=== PATIENT | male | born 1950 | race Caucasian/White ===

== ENCOUNTER → 2016-04-07 | Outpatient (CLI) | payer MEDICARE ==
[2016-04-07 12:37] LABS: CH 30.1; CHCM 32.6; HCT 45.9 % (39.0-53.0); HDW 2.44; MCH 30.4 pg (25.0-35.0); MCHC 32.7 g/dL (31.0-37.0); MCV 92.9 fL (80.0-100.0); Mean Platelet Volume 7.7; RBC 4.94 m/uL (4.30-5.90); RDW 13.8 % (11.5-15.5); WBC 12.1 k/uL (3.8-10.6)
[2016-04-07 12:56] LABS: Anion Gap 10 mmol/L; Blood Urea Nitrogen 16 mg/dL (9-20); Carbon Dioxide 28 mmol/L (22-30); Chloride 104 mmol/L (98-107); Non-African American GFR(MDRD) >60 (>60 ml/min/1.73 sqM); Potassium 4.4 mmol/L (3.5-5.1); Sodium 142 mmol/L (137-145)
== END | disposition home or self-care (01) ==
LOC: LABPAT 12:05
PROVIDERS: ATTEND Internal Medicine Interventional Cardiology
DX: Z01.812 Encounter for preprocedural laboratory examination (principal); I25.10 Atherosclerotic heart disease of native coronary artery without angina pectoris
CPT/HCPCS: 80051; 82565; 84520; 85027

== ENCOUNTER 2016-04-15 08:45 | Day surgery (SDC) | payer MEDICARE ==
[2016-04-12 11:27] VITALS: BMI 44.2
[~2016-04-15 08:45] MED LIST: ALPRAZolam 0.25 MG TAB PO PRN; ALPRAZolam 0.5 MG TAB PO PRN; ASPIRIN 325 MG TAB PO STA; SODIUM CHLORIDE 0.9% 1,000 ML in EMPTY BAG 1 BAG IV ONE
[2016-04-15 09:12] LABS: Glucose,Whole Blood 124 mg/dL (75-99)
[2016-04-15 09:49] VITALS: RESP 20; TEMP 97.8
[2016-04-15] MEDS ORDERED: LIDOCAINE 2% INJ 20 MG/ML (20 ML MDV) ONE (10:15)
[2016-04-15] MEDS ORDERED: MIDAZOLAM 2 MG/2 ML VIAL ONE (10:15)
[2016-04-15] MEDS ORDERED: VERAPAMIL 2.5 MG/ML 2 ML AMP ONE (10:15)
[2016-04-15] MEDS ORDERED: SODIUM CHLORIDE 0.9% (PF) 10 ML VIAL ONE (10:15)
[2016-04-15] MEDS ORDERED: MIDAZOLAM 2 MG/2 ML VIAL IVP ONE (10:40)
[2016-04-15] MEDS ORDERED: SODIUM CHLORIDE 0.9% 1,000 ML IV ONE (10:44)
[2016-04-15] MEDS ORDERED: LIDOCAINE 2% INJ 20 MG/ML SQ ONE (10:51)
[2016-04-15] MEDS ORDERED: HEPARIN SODIUM 1,000 UNIT/ML VIAL ONE (10:52)
[2016-04-15] MEDS: VERAPAMIL SYRINGE (5 MG/10 ML) INTRAARTER ONE ×2 (10:52→11:03)
[2016-04-15] MEDS ORDERED: HEPARIN SODIUM 1,000 UNIT/ML VIAL IV ONE (10:53)
[2016-04-15] MEDS ORDERED: IOHEXOL 350 MG/ML 100 ML BOTTLE INJ ONE (11:04)
[2016-04-15] MEDS ORDERED: RX INFO: IV CONTRAST WAS GIVEN 1 EACH MISC MISCELLANE PRN (11:12)
[2016-04-15] MEDS ORDERED: SODIUM CHLORIDE 0.9% 1,000 ML IV SCH (11:15)
[2016-04-15 11:27] LABS: Glucose,Whole Blood 99 mg/dL (75-99)
[2016-04-15 15:22] VITALS: PULSE 80
[2016-04-15 16:17] VITALS: BP 115/70
--- NOTE | 2016-04-15 21:02 | CC ---
DATE OF SERVICE: 04/15/2016 PERFORMING PHYSICIAN: Maurilio Mansfield M.D., hot oiler. PROCEDURE PERFORMED: Selective right and left coronary angiogram. INDICATION: This is a pleasant 65-year-old gentleman who is known to have CAD with prior stenting of the proximal LAD and proximal left circumflex. He was experiencing chest discomfort consistent with angina. He underwent myocardial perfusion imaging stress test which showed what seems to be lateral wall ischemia. He was brought today to undergo a heart catheterization. APPROACH: Right radial artery. COMPLICATIONS: None. LEVEL OF SEDATION: Moderate. PROCEDURE DESCRIPTION: After obtaining informed consent, the patient was brought to the cardiac manager cardiac cath. The right radial artery was cannulated using micropuncture technique. The micropuncture wire passed easily, then I placed 6 Polish sheath in the right radial artery. I did give the patient 3000 units of heparin IV and ( ) mg of Verapamil IA. After that I did selective right and left coronary angiogram using JR4 and JL3.5 catheters. The procedure was completed without any complication. SELECTIVE CORONARY ANGIOGRAM: 1. The right coronary artery is a large-caliber vessel, a dominant vessel, and a calcified vessel. It has mild disease only. It bifurcates into PDA and PLV branches; both are angiographically normal. 2. The left main is angiographically normal. It bifurcates into the left circumflex and left anterior descending artery. 3. The left circumflex is a large-caliber vessel. It is a non-dominant vessel. The proximal left circumflex is stented with mild in-stent restenosis. The mid left circumflex is normal and gives rise to the first OM branch, which is a large-caliber vessel with mild disease only. The left circumflex continues after that as a small- to medium-caliber vessel in the AV groove. 4. Left anterior descending artery. The proximal LAD is stented, and the stent is patent. The mid LAD appeared to be angiographically normal and gives rise to 2 small diagonal branches. The LAD distally is angiographically normal. CONCLUSION: 1. Patent stents in the proximal left circumflex and proximal LAD. 2. There is no other severe de sammy coronary artery disease. POST-PROCEDURE MANAGEMENT: 1. Maximize medical treatment. 2. Follow up with the patient.
--- NOTE | 2016-04-15 21:05 | LTR ---
April 15, 2016 RE: Andrea Dalal Pardeep Dear Cecy, Mr. Andrea Dalal underwent a heart catheterization which showed patent stents in both the LAD and left circumflex. Thank you for allowing me to participate in his care. Please do not hesitate to call if you have any questions or concerns. Sincerely, VESTA VANG MD
== END 2016-04-15 16:05 | disposition home or self-care (01) ==
LOC: CATHCVL 08:45
PROVIDERS: ATTEND Internal Medicine Interventional Cardiology
DX: I25.110 Atherosclerotic heart disease of native coronary artery with unstable angina pectoris (principal); Z95.5 Presence of coronary angioplasty implant and graft; R94.39 Abnormal result of other cardiovascular function study; I10 Essential (primary) hypertension; E78.00 Pure hypercholesterolemia, unspecified; E78.5 Hyperlipidemia, unspecified; E11.9 Type 2 diabetes mellitus without complications; Z79.82 Long term (current) use of aspirin; Z79.4 Long term (current) use of insulin; Z79.891 Long term (current) use of opiate analgesic; Z79.899 Other long term (current) drug therapy; Z79.84 Long term (current) use of oral hypoglycemic drugs; Z82.49 Family history of ischemic heart disease and other diseases of the circulatory system; Z87.891 Personal history of nicotine dependence
CPT/HCPCS: 93454; 99156; 99157; C1894; J2001; J2250; Q9967; J1644

== ENCOUNTER 2017-03-04 18:47 | Emergency (ER) | payer MEDICARE ==
[2017-03-04 18:57] VITALS: RESP 18
[2017-03-04] MEDS ORDERED: SODIUM CHLORIDE 0.9% 500 ML IV STA (19:13)
[2017-03-04] MEDS ORDERED: methylPREDNISolone SOD SUCCI 125 MG/2 ML VIAL IV STA (19:13)
[2017-03-04] MEDS ORDERED: IPRATROPIUM-ALBUTEROL 3 ML NEB INHALATION STA (19:13)
--- NOTE | 2017-03-04 19:18 | ED ---
URI HPI - General Chief Complaint: Upper Respiratory Infection Stated Complaint: COUGHING Time Seen by Provider: 03/04/17 19:00 Source: patient, RN notes reviewed, old records reviewed Mode of arrival: ambulatory Limitations: no limitations - History of Present Illness Initial Comments: This is a 66-year-old male presents emergency department today she complaint of cough for 2 days. He has a history of cardiac stents. Patient reports that he is friend was diagnosed with bronchitis and he drank from the same drink started 2 days ago. Patient reports his cough has been nonproductive. He is a diabetic, and has hypertension. He denies any specific chest pain associated with this. He reports that he has some minor ear itching. Denies any other symptoms. - Related Data Home Medications Medication Instructions Recorded Confirmed Aspirin EC [Ecotrin Low Dose] 81 mg PO DAILY 04/12/16 03/04/17 Gabapentin 600 mg PO TID 04/12/16 03/04/17 HYDROcodone/APAP 7.5-325MG [[place] 1 tab PO TID PRN 04/12/16 03/04/17 7.5-325] INSULIN LISPRO (HumaLOG) [humaLOG] See Protocol SQ AC-TID PRN 04/12/16 03/04/17 Insulin Glargine,Hum.rec.anlog 70 units SQ DAILY 04/12/16 03/04/17 [[place] Solostar] Nitroglycerin Sl Tabs [Nitrostat] 0.4 mg SUBLINGUAL Q5M PRN 04/12/16 03/04/17 Tamsulosin HCl [Flomax] 0.8 mg PO HS 04/12/16 03/04/17 glipiZIDE [Glucotrol] 10 mg PO AC-BID 04/12/16 03/04/17 sitaGLIPtin [Januvia] 50 mg PO DAILY 04/12/16 03/04/17 Albuterol Nebulized [Ventolin 2.5 mg INHALATION RT-Q4H PRN 03/04/17 03/04/17 Nebulized] Bumetanide [BUMEX] 0.5 mg PO DAILY 03/04/17 03/04/17 Previous Rx's Medication Instructions Recorded Azithromycin [Zithromax Z-pack] 250 mg PO DIRECTED #6 tab 03/04/17 methylPREDNISolone Dose Pack 4 mg PO DIRECTED #21 package 03/04/17 [Medrol Dose Pack] Allergies Allergy/AdvReac Type Severity Reaction Status Date / Time No Known Allergies Allergy Verified 03/04/17 19:20 Review of Systems ROS Statement: Those systems with pertinent positive or pertinent negative responses have been documented in the HPI. ROS Other: All systems not noted in ROS Statement are negative. Past Medical History Past Medical History: Chest Pain / Angina, CVA/TIA, Diabetes Mellitus, Eye Disorder, Hearing Disorder / Deafness, Hyperlipidemia, Myocardial Infarction ([place] ), Osteoarthritis (OA), Renal Disease, Respiratory Disorder Additional Past Medical History / Comment(s): CP ON/OFF X3 WEEKS, OCC SHORT OF BREATH. STATES HAS CHRONIC "BRONCHITIS." [place]. NEUROPATHY IN FEET. Last Myocardial Infarction Date:: 2010 History of Any Multi-Drug Resistant Organisms: None Reported Past Surgical History: Heart Catheterization With Stent Additional Past Surgical History / Comment(s): PTCA W/ STENTS X2. ORIF RT THIGH. Past Anesthesia/Blood Transfusion Reactions: No Reported Reaction Date of Last Stent Placement:: 2010 Past Psychological History: No Psychological Hx Reported Smoking Status: Current every day smoker Past Alcohol Use History: None Reported Past Drug Use History: None Reported - Past Family History Daughter(s) Family Medical History: Cancer General Exam - General Exam Comments Initial Comments: Well appearing 66 year old male, no distress Limitations: no limitations General appearance: alert, in no apparent distress Head exam: Present: atraumatic, normocephalic, normal inspection Eye exam: Present: normal appearance, PERRL, EOMI. Absent: scleral icterus, conjunctival injection, periorbital swelling ENT exam: Present: normal exam, mucous membranes moist Neck exam: Present: normal inspection. Absent: tenderness, meningismus, lymphadenopathy Respiratory exam: Present: normal lung sounds bilaterally. Absent: respiratory distress, wheezes, rales, rhonchi, stridor Cardiovascular Exam: Present: regular rate, normal rhythm, normal heart sounds. Absent: systolic murmur, diastolic murmur, rubs, gallop, clicks GI/Abdominal exam: Present: soft, normal bowel sounds. Absent: distended, tenderness, guarding, rebound, rigid Extremities exam: Present: normal inspection, full ROM, normal capillary refill. Absent: tenderness, pedal edema, joint swelling, calf tenderness Back exam: Present: normal inspection Neurological exam: Present: alert, oriented X3, CN II-XII intact Course Vital Signs 03/04/17 03/04/17 03/04/17 18:55 20:08 20:22 Temperature 97.6 F Pulse Rate 93 92 90 Respiratory 18 Rate Blood Pressure 115/71 O2 Sat by Pulse 97 Oximetry 03/04/17 21:24 Temperature 97.4 F L Pulse Rate 90 Respiratory 18 Rate Blood Pressure 126/58 O2 Sat by Pulse 95 Oximetry Medical Decision Making - Medical Decision Making This is a 66-year-old male presents emergency department today she complaint of cough for 2 days. He has a history of cardiac stents. Patient reports that he is friend was diagnosed with bronchitis and he drank from the same drink started 2 days ago. Patient reports his cough has been nonproductive. Patient given duoneb breathing treatment. Has minimal wheezing. Patient influenza is negative. CXR is negative. Paitent will be diagnosed with bronchitis. Discussed starting Zpak and medrol dose pack. Discussed adjusting insulin sliding scale with steriod. Discussed return parameters and follow up with PCP. - Lab Data Result diagrams: 03/04/17 19:36 Lab Results 03/04/17 03/04/17 03/04/17 Range/Units 19:36 19:36 19:38 WBC 11.9 H (3.8-10.6) k/uL RBC 4.68 (4.30-5.90) m/uL Hgb 13.9 (13.0-17.5) gm/dL Hct 42.8 (39.0-53.0) % MCV 91.5 (80.0-100.0) fL MCH 29.7 (25.0-35.0) pg MCHC 32.5 (31.0-37.0) g/dL RDW 13.6 (11.5-15.5) % Plt Count 208 (150-450) k/uL Neutrophils % 68 % Lymphocytes % 21 % Monocytes % 7 % Eosinophils % 2 % Basophils % 1 % Neutrophils # 8.1 H (1.3-7.7) k/uL Lymphocytes # 2.5 (1.0-4.8) k/uL Monocytes # 0.9 (0-1.0) k/uL Eosinophils # 0.3 (0-0.7) k/uL Basophils # 0.1 (0-0.2) k/uL POC Glucose (mg/dL) 252 H (75-99) mg/dL POC Glu [employer] Machine Tender Rola Lopez Influenza Type A RNA Not Detected (Not Detectd) Influenza Type B (PCR) Not Detected (Not Detectd) - Radiology Data Radiology results: report reviewed CXR is negative for any acute process. Disposition Clinical Impression: Bronchitis Disposition: HOME SELF-CARE Condition: Good Instructions: Acute Bronchitis (ED) Additional Instructions: Patient should follow-up with primary care provider. Take medications as prescribed. Patient should discontinue smoking. Adjust your blood sugar correctly with insulin sliding scale. Prescriptions: Azithromycin [Zithromax Z-pack] 250 mg PO DIRECTED #6 tab methylPREDNISolone Dose Pack [Medrol Dose Pack] 4 mg PO DIRECTED #21 package Referrals: Cecy Peralta MD [Primary Care Provider] - 1-2 days Time of Disposition: 21:12
[2017-03-04 19:40] LABS: Glucose,Whole Blood 252 mg/dL (75-99)
[2017-03-04 19:46] LABS: Basophils # (A) 0.1 k/uL (0-0.2); Basophils % (A) 1 %; Eosinophils # (A) 0.3 k/uL (0-0.7); Eosinophils % (A) 2 %; HCT 42.8 % (39.0-53.0); HGB 13.9 gm/dL (13.0-17.5); Lymphocytes # (A) 2.5 k/uL (1.0-4.8); Lymphocytes % (A) 21 %; MCH 29.7 pg (25.0-35.0); MCHC 32.5 g/dL (31.0-37.0); MCV 91.5 fL (80.0-100.0); Mean Platelet Volume 6.9; Monocytes # (A) 0.9 k/uL (0-1.0); Monocytes % (A) 7 %; Neutrophils # (A) 8.1 k/uL (1.3-7.7); Neutrophils % (A) 68 %; Platelet Count 208 k/uL (150-450); RBC 4.68 m/uL (4.30-5.90); RDW 13.6 % (11.5-15.5); WBC 11.9 k/uL (3.8-10.6)
--- NOTE | 2017-03-04 20:15 | XR ---
EXAMINATION TYPE: XR chest 2V DATE OF EXAM: 03/04/2017 COMPARISON: November 21, 2011. HISTORY: Cough TECHNIQUE: Frontal and lateral views of the chest are obtained. FINDINGS: There is no focal air space opacity, pleural effusion, or pneumothorax seen. The cardiac silhouette size is within normal limits. The osseous structures are intact. IMPRESSION: No acute cardiopulmonary process.
[2017-03-04 20:22] VITALS: PULSE 90
[2017-03-04 21:25] VITALS: TEMP 97.4
[2017-03-04 21:26] VITALS: BP 126/58
--- NOTE | 2017-03-06 03:13 | CDI ---
Documentation Clarification OP Dear ANIBAL Barton: Please do addendum to ED report for Physical exam. Thank you, Najma Torrez Self Pay Specialist If you have any question, Please contact manager monitoring at [phone] [facility]
== END 2017-03-04 21:24 | disposition home or self-care (01) ==
LOC: EC 18:47
DX: J40 Bronchitis, not specified as acute or chronic (principal); E78.5 Hyperlipidemia, unspecified; I25.2 Old myocardial infarction; H91.90 Unspecified hearing loss, unspecified ear; E11.40 Type 2 diabetes mellitus with diabetic neuropathy, unspecified; F17.200 Nicotine dependence, unspecified, uncomplicated; Z79.4 Long term (current) use of insulin; Z79.82 Long term (current) use of aspirin; Z79.899 Other long term (current) drug therapy
CPT/HCPCS: 36415; 94640; 85025; 87502; 71020; 99284; 96374; 96361; J2930

== ENCOUNTER 2019-01-14 06:58 | Day surgery (SDC) | payer MEDICARE, BC ==
[2019-01-10 12:10] VITALS: BMI 42.9
[~2019-01-14 06:58] MED LIST changes: -ALPRAZolam 0.25 MG TAB PO PRN; -ALPRAZolam 0.5 MG TAB PO PRN; -ASPIRIN 325 MG TAB PO STA; +LACTATED RINGERS 1,000 ML IV SCH; -SODIUM CHLORIDE 0.9% 1,000 ML in EMPTY BAG 1 BAG IV ONE
[2019-01-14 07:18] VITALS: RESP 16; TEMP 97.7
[2019-01-14] MEDS ORDERED: LIDOCAINE 1% 20 ML VIAL (10MG/ML) FOR IV START INTRADERMA ONE (07:22)
[2019-01-14 07:26] LABS: Glucose,Whole Blood 147 mg/dL (75-99)
[2019-01-14] MEDS ORDERED: LIDOCAINE 1% INJ 10MG/ML (20 ML MDV) ONE (08:03)
[2019-01-14] MEDS ORDERED: PROPOFOL 10 MG/ML 20 ML VIAL IV ONE (08:03)
--- NOTE | 2019-01-14 08:36 | P.PCN ---
Date of Procedure: 01/14/19 Description of Procedure: BRIEF HISTORY: Patient is a 68-year-old pleasant male scheduled for an elective colonoscopy as a part of high risk screening for family history of colon cancer. Patient reports no history of colon cancer and his daughter diagnosed at the age of 45. Denies any change in bowel habits, blood per rectum or abdominal pain. Last colonoscopy 9 years ago normal per his recollection. PROCEDURE PERFORMED: Colonoscopy with polypectomy. PREOPERATIVE DIAGNOSIS: Family history of colon cancer (daughter diagnosed with colon cancer at age of 45), last colonoscopy 9 years ago. ESTIMATED BLOOD LOSS: Minimal. IV sedation per Anesthesia. PROCEDURE: After informed consent was obtained, the patient, was brought into the endoscopy unit. IV sedation was administered by Anesthesia under continuous monitoring. Digital rectal examination was normal. Initially the Olympus CF-190 flexible video colonoscope was then inserted in the rectum, gradually advanced into the cecum without any difficulty. Careful examination was performed as the scope was gradually being withdrawn. Ileocecal valve and the appendiceal orifice were visualized and appeared normal. Prep was good with some semisolid liquid and the koch of the mucosa which was able to be lavaged and suctioned. Mucosa of the cecum, ascending colon, transverse colon, descending colon, sigmoid colon, and rectum appeared normal. Diminutive sessile 2 mm transverse colon polyp removed with cold forcep polypectomy. Few scattered sigmoid diverticula noted. Retroflexion was performed in the rectum and no lesions were seen. The patient tolerated the procedure well. IMPRESSION: Mild sigmoid diverticulosis. Diminutive transverse colon polyp removed with cold forceps. RECOMMENDATIONS: Findings of this examination were discussed with the patient and his brother. Okay to resume diet and medications. Await pathology from polypectomy. Anticipate repeat colonoscopy in 3-5 years pending pathology from polypectomy and given patient's family history of colon cancer.
[2019-01-14 09:06] VITALS: BP 116/74; PULSE 79
== END 2019-01-14 09:15 | disposition home or self-care (01) ==
LOC: ORWHC2ENDO 06:58
PROVIDERS: ATTEND Internal Medicine
DX: Z12.11 Encounter for screening for malignant neoplasm of colon (principal); K63.5 Polyp of colon; K57.30 Diverticulosis of large intestine without perforation or abscess without bleeding; Z80.0 Family history of malignant neoplasm of digestive organs; I25.10 Atherosclerotic heart disease of native coronary artery without angina pectoris; J45.909 Unspecified asthma, uncomplicated; M19.90 Unspecified osteoarthritis, unspecified site; E78.5 Hyperlipidemia, unspecified; N28.9 Disorder of kidney and ureter, unspecified; E11.319 Type 2 diabetes mellitus with unspecified diabetic retinopathy without macular edema; F17.210 Nicotine dependence, cigarettes, uncomplicated; I25.2 Old myocardial infarction; Z86.73 Personal history of transient ischemic attack (TIA), and cerebral infarction without residual deficits; Z95.5 Presence of coronary angioplasty implant and graft; Z79.82 Long term (current) use of aspirin; Z79.4 Long term (current) use of insulin; Z79.891 Long term (current) use of opiate analgesic; Z79.899 Other long term (current) drug therapy
CPT/HCPCS: 88305; 45380; J2001; J2704

== ENCOUNTER 2019-06-08 13:38 | Emergency (ER) | payer MEDICARE, BC ==
[2019-06-08 13:50] VITALS: RESP 16
[2019-06-08] MEDS ORDERED: MORPHINE SULFATE 4 MG/ML SYRINGE IVP STA (13:57)
[2019-06-08] MEDS ORDERED: ONDANSETRON 4 MG/2 ML VIAL IVP STA (13:57)
--- NOTE | 2019-06-08 14:01 | ED ---
Skin/Abscess/FB HPI - General Source: patient, RN notes reviewed Mode of arrival: ambulatory Limitations: no limitations <Juan Hamilton - Last Filed: 06/08/19 14:00> <Ian Melgar - Last Filed: 06/08/19 16:21> - General Chief complaint: Skin/Abscess/Foreign Body Stated complaint: Urogenital Time Seen by Provider: 06/08/19 13:52 - History of Present Illness Initial comments: This a 68-year-old male presents emergency Department chief complaint of scrotal lump. Patient states started a few days ago. Patient states it is becoming more painful. He states he feels that they behind his scrotum. He denies any fevers or chills he states he is a diabetic was blood sugars have been running well. Current blood sugar 166. Patient denies any abdominal pain, generalized weakness, nausea, vomiting no dysuria no hematuria. He's never had an abscess that does not pass. (uJan Hamilton) - Related Data Home Medications Medication Instructions Recorded Confirmed Aspirin EC [Ecotrin Low Dose] 81 mg PO HS 04/12/16 01/10/19 Gabapentin 1,200 mg PO BID 04/12/16 01/10/19 HYDROcodone/APAP 7.5-325MG [[place] 1 tab PO Q6H PRN 04/12/16 01/10/19 7.5-325] Nitroglycerin Sl Tabs [Nitrostat] 0.4 mg SUBLINGUAL Q5M PRN 04/12/16 01/10/19 Tamsulosin HCl [Flomax] 0.4 mg PO HS 04/12/16 01/10/19 glipiZIDE [Glucotrol] 10 mg PO AC-BID 04/12/16 01/10/19 sitaGLIPtin [Januvia] 100 mg PO DAILY 04/12/16 01/10/19 Albuterol Nebulized [Ventolin 2.5 mg INHALATION RT-Q4H PRN 03/04/17 01/14/19 Nebulized] Atorvastatin [Lipitor] 20 mg PO DAILY 01/10/19 01/10/19 Empagliflozin [Jardiance] 25 mg PO DAILY 01/10/19 01/10/19 Hydrocortisone Butyrate 1 applic TOPICAL BID PRN 01/10/19 01/10/19 [Hydrocortisone Butyrate 0.1%] Insulin Aspart [NovoLOG Flexpen] 30 - 40 units SQ AC-TID PRN 01/10/19 01/10/19 Insulin Degludec [Tresiba 60 units SQ HS 01/10/19 01/10/19 Flextouch U-200] metFORMIN HCL [Glucophage] 500 mg PO DAILY 01/10/19 01/10/19 Previous Rx's Medication Instructions Recorded Clindamycin [Cleocin] 450 mg PO Q8H 10 Days #30 cap 06/08/19 Allergies Allergy/AdvReac Type Severity Reaction Status Date / Time No Known Allergies Allergy Verified 06/08/19 13:50 Review of Systems ROS Other: All systems not noted in ROS Statement are negative. <Juan Hamilton - Last Filed: 06/08/19 14:00> ROS Other: All systems not noted in ROS Statement are negative. <Ian Melgar - Last Filed: 06/08/19 16:21> ROS Statement: Those systems with pertinent positive or pertinent negative responses have been documented in the HPI. Past Medical History Past Medical History: Asthma, Coronary Artery Disease (CAD), Chest Pain / Angina, CVA/TIA, Diabetes Mellitus, Eye Disorder, Hyperlipidemia, Myocardial Infarction ([place]), Osteoarthritis (OA), Renal Disease, Respiratory Disorder Additional Past Medical History / Comment(s): Hx "MINI STROKE," recovered. Diabetic retinopathy. STATES HAS CHRONIC "BRONCHITIS." SL [place]. B[place]. NEUROPATHY IN FEET. 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 Last Myocardial Infarction Date:: 2010 History of Any Multi-Drug Resistant Organisms: None Reported Past Surgical History: Heart Catheterization With Stent Additional Past Surgical History / Comment(s): PTCA W/ STENTS X2. ORIF RT THIGH as child. Colonoscopy. Past Anesthesia/Blood Transfusion Reactions: No Reported Reaction Date of Last Stent Placement:: 2010 Past Psychological History: No Psychological Hx Reported Smoking Status: Current every day smoker - Past Family History Daughter(s) Family Medical History: Cancer <Juan Hamilton - Last Filed: 06/08/19 14:00> General Exam Limitations: no limitations General appearance: alert, in no apparent distress Head exam: Present: atraumatic, normocephalic, normal inspection Eye exam: Present: normal appearance, PERRL, EOMI. Absent: scleral icterus, conjunctival injection, periorbital swelling Respiratory exam: Present: normal lung sounds bilaterally. Absent: respiratory distress, wheezes, rales, rhonchi, stridor Cardiovascular Exam: Present: regular rate, normal rhythm, normal heart sounds. Absent: systolic murmur, diastolic murmur, rubs, gallop, clicks GI/Abdominal exam: Present: soft, normal bowel sounds. Absent: distended, tenderness, guarding, rebound, rigid exam: Present: scrotal swelling (Mild), other (There is approximately 2 cm firm and mildly fluctuant lump at the base of scrotum towards the perineum) Neurological exam: Present: alert, oriented X3 <Juan Hamilton - Last Filed: 06/08/19 14:00> Course Vital Signs 06/08/19 13:49 Temperature 98.1 F Pulse Rate 91 Respiratory 16 Rate Blood Pressure 102/66 O2 Sat by Pulse 96 Oximetry Procedures - Incision & Drainage Consent Obtained: verbal consent Site: scrotum Size (cm): 3 Anesthetic Used: lidocaine 1% Amount (mLs): 2 I&D Cleaning Method: Chloroprep, Betadine Sterile Field Used?: Yes Scalpel Used: #11 Needle Aspiration Performed?: No Irrigation Performed?: No I&D Drainage Obtained: Pus, Blood Packing: Iodoform Culture Obtained?: Yes Patient Tolerated Procedure: well <Ian Melgar - Last Filed: 06/08/19 16:21> Medical Decision Making - Lab Data Result diagrams: 06/08/19 14:09 06/08/19 14:09 - Radiology Data Radiology results: report reviewed (Scrotal ultrasound: Complex fluid collection at area of pain with peripheral vascularity suspicious for focal soft tissue abscess.) <Ian Melgar - Last Filed: 06/08/19 16:21> - Medical Decision Making Patient was endorsed to me by NATALIE Hamilton secondary to end of his shift. Please see ED ANIBAL Hamilton's note for a detailed H&P. Patient is afebrile and without leukocytosis. Patient is noted to have a posterior scrotal abscess by examination and by ultrasound findings. Patient has no findings of cellulitis at this time. Patient's abscess was incised and drained myself using a a size 11 scalpel. Cultures were obtained. Patient tolerated the procedure well. Given that the patient is diabetic, and given the location of the patient's ab scess, will start the patient on a course of oral clindamycin. Patient was instructed to, and agrees to, follow up with his primary care provider or return to the ED in 2-3 days' time for wound reevaluation and packing/dressing change. Patient was counseled about scrotal abscesses, and he was clearly explained return and follow-up instructions. He was instructed to return to the ED sooner should he develop new or worsening pain or swelling, a fever, vomiting, shortness of breath, feeling dizzy or faint, or new or worsening symptoms. He feels comfortable with this plan. (Ian Melgar) - Lab Data Lab Results 06/08/19 06/08/19 06/08/19 Range/Units 14:09 14:09 14:09 WBC 10.7 H (3.8-10.6) k/uL RBC 5.22 (4.30-5.90) m/uL Hgb 15.8 (13.0-17.5) gm/dL Hct 49.0 (39.0-53.0) % MCV 93.9 (80.0-100.0) fL MCH 30.2 (25.0-35.0) pg MCHC 32.2 (31.0-37.0) g/dL RDW 14.2 (11.5-15.5) % Plt Count 228 (150-450) k/uL Neutrophils % 64 % Lymphocytes % 25 % Monocytes % 6 % Eosinophils % 2 % Basophils % 0 % Neutrophils # 6.8 (1.3-7.7) k/uL Lymphocytes # 2.7 (1.0-4.8) k/uL Monocytes # 0.7 (0-1.0) k/uL Eosinophils # 0.3 (0-0.7) k/uL Basophils # 0.0 (0-0.2) k/uL Sodium 137 (137-145) mmol/L Potassium 4.6 (3.5-5.1) mmol/L Chloride 105 (98-107) mmol/L Carbon Dioxide 24 (22-30) mmol/L Anion Gap 8 mmol/L BUN 20 (9-20) mg/dL Creatinine 0.86 (0.66-1.25) mg/dL Est GFR (CKD-EPI)AfAm >90 (>60 ml/min/1.73 sqM) Est GFR (CKD-EPI)NonAf >90 (>60 ml/min/1.73 sqM) Glucose 176 H (74-99) mg/dL Plasma Lactic Acid [place] 2.0 (0.7-2.0) mmol/L Calcium 9.1 (8.4-10.2) mg/dL Disposition <Juan Hamilton - Last Filed: 06/08/19 14:00> Is patient prescribed a controlled substance at d/c from ED?: No Time of Disposition: 16:21 <Ian Melgar - Last Filed: 06/08/19 16:21> Clinical Impression: Scrotal abscess Disposition: HOME SELF-CARE Condition: Stable Instructions (If sedation given, give patient instructions): Abscess Incision and Drainage (ED) Additional Instructions: Return to the ER immediately should you develop new or worsening pain or swelling, a fever, vomiting, shortness of breath, feeling dizzy or faint, or new or worsening symptoms. Follow up with your primary care provider or return to the ER in 2-3 days for wound reevaluation. Prescriptions: Clindamycin [Cleocin] 450 mg PO Q8H 10 Days #30 cap Referrals: Lee Ann Alonso MD [Primary Care Provider] - 1-2 days
[2019-06-08 14:21] LABS: Basophils % (A) 0 %; Eosinophils # (A) 0.3 k/uL (0-0.7); Eosinophils % (A) 2 %; HGB 15.8 gm/dL (13.0-17.5); Lymphocytes # (A) 2.7 k/uL (1.0-4.8); Lymphocytes % (A) 25 %; MCH 30.2 pg (25.0-35.0); MCHC 32.2 g/dL (31.0-37.0); MCV 93.9 fL (80.0-100.0); Mean Platelet Volume 7.5; Monocytes # (A) 0.7 k/uL (0-1.0); Monocytes % (A) 6 %; Neutrophils # (A) 6.8 k/uL (1.3-7.7); Neutrophils % (A) 64 %; Platelet Count 228 k/uL (150-450); RBC 5.22 m/uL (4.30-5.90); RDW 14.2 % (11.5-15.5); WBC 10.7 k/uL (3.8-10.6)
[2019-06-08 14:29] LABS: African American GFR (CKD) >90 (>60 ml/min/1.73 sqM); Anion Gap 8 mmol/L; Blood Urea Nitrogen 20 mg/dL (9-20); Calcium 9.1 mg/dL (8.4-10.2); Carbon Dioxide 24 mmol/L (22-30); Chloride 105 mmol/L (98-107); Glucose 176 mg/dL (74-99); Non-African American GFR(CKD) >90 (>60 ml/min/1.73 sqM); Potassium 4.6 mmol/L (3.5-5.1); Sodium 137 mmol/L (137-145)
--- NOTE | 2019-06-08 15:31 | US ---
EXAMINATION TYPE: US scrotum with doppler. Grayscale and color Doppler Duplex imaging performed of t he scrotum. DATE OF EXAM: 06/08/2019 COMPARISON: NONE CLINICAL HISTORY: Pain. EXAM MEASUREMENTS: TESTICLES: Right Testicle: 4.3 x 2.2 x 3.1 cm Left Testicle: 4.4 x 2.3 x 2.4 cm EPIDIDYMIS HEAD: Right Epididymis: 0.9 cm Left Epididymis: 1.0 cm Doppler performed to assess for testicular vascularity; good bilateral color flow and waveforms are s een. Presence of hydroceles: no Presence of varicoceles: no Comparison images show symmetric blood flow to both testicles towards middle ear study. Inferior to testicles at patients area of pain is a well circumscribed hypoechoic area with surroundi ng increased vascularity measuring 3.2 x 1.5 x 1.9cm. IMPRESSION: Complex fluid collection at area of pain with peripheral vascularity suspicious for focal soft tissue abscess. Technologist labels this inferior to scrotum but should be correlated clinicall y as not sure what this means inferior to the scrotum?
[2019-06-08] MEDS ORDERED: CLINDAMYCIN 150 MG CAP PO STA (16:11)
[2019-06-08 16:28] VITALS: BP 125/85; PULSE 75; TEMP 98.2
== END 2019-06-08 16:28 | disposition home or self-care (01) ==
LOC: EC 13:38
DX: N49.2 Inflammatory disorders of scrotum (principal); F17.200 Nicotine dependence, unspecified, uncomplicated; I25.119 Atherosclerotic heart disease of native coronary artery with unspecified angina pectoris; E78.5 Hyperlipidemia, unspecified; E11.42 Type 2 diabetes mellitus with diabetic polyneuropathy; N40.0 Benign prostatic hyperplasia without lower urinary tract symptoms; E11.319 Type 2 diabetes mellitus with unspecified diabetic retinopathy without macular edema; M19.90 Unspecified osteoarthritis, unspecified site; I25.2 Old myocardial infarction; Z79.899 Other long term (current) drug therapy; Z79.4 Long term (current) use of insulin; Z79.82 Long term (current) use of aspirin; Z79.891 Long term (current) use of opiate analgesic; Z86.73 Personal history of transient ischemic attack (TIA), and cerebral infarction without residual deficits; Z95.5 Presence of coronary angioplasty implant and graft
CPT/HCPCS: 36415; 80048; 83605; 85025; 87070; 87205; 93975; 76870; 99284; 96374; 96375; 54700; J2270; J2405

== ENCOUNTER 2019-12-13 14:10 | Emergency (ER) | payer MEDICARE, BC ==
[2019-12-13 14:33] VITALS: BP 123/76; PULSE 96; RESP 18; TEMP 98
[2019-12-13] MEDS ORDERED: HYDROcodone/APAP 7.5-325MG 1 EACH TAB PO ONE (15:02)
--- NOTE | 2019-12-13 15:28 | XR ---
Right femur HISTORY: Pain Frontal and lateral views the right femur submitted on 5 images Correlation to prior exam 12/07/2015 There is no significant interval change. No evident lytic or blastic lesion. Focal cortical thickenin g shows a stable nonaggressive appearance in the midshaft medially in the right femur. Atheroscleroti c calcifications are present. No acute fracture or dislocation. IMPRESSION: Stable findings, remote trauma, if infection is suspected clinically, alternate imaging m ay be of benefit.
--- NOTE | 2019-12-13 15:44 | ED ---
General Adult HPI - General Chief complaint: Skin/Abscess/Foreign Body Stated complaint: Poss Boil on R Leg Time Seen by Provider: 12/13/19 14:36 Source: patient, RN notes reviewed, old records reviewed Mode of arrival: ambulatory Limitations: no limitations - History of Present Illness Initial comments: 69-year-old male patient presents to ED for evaluation of right posterior thigh pain. Reports has been ongoing for the last 2 days. Denies any recent falls or trauma. denies any chest pain or abdominal pain shortness of breath. Denies any other acute complaints at this time. Systemic: Pt denies fatigue, fever/chills, rash. Pt denies weakness, night sweats, weight loss. Neuro: Pt denies headache, visual disturbances, syncope or pre-syncope. HEENT: Pt denies ocular discharge or irritation, otalgia, rhinorrhea, pharyngitis or notable lymphadenopathy. Cardiopulmonary: Pt denies chest pain, SOB, heart palpitations, dyspnea on exer tion. Abdominal/GI: Pt denies abdominal pain, n/v/d. : Pt denies dysuria, burning w/ urination, frequency/urgency. Denies new onset urinary or bowel incontinence. MSK: Pt denies loss of strength or function in extremities. Neuro: Pt denies new onset weakness, paresthesias. - Related Data Home Medications Medication Instructions Recorded Confirmed Aspirin EC [Ecotrin Low Dose] 81 mg PO HS 04/12/16 01/10/19 Gabapentin 1,200 mg PO BID 04/12/16 01/10/19 HYDROcodone/APAP 7.5-325MG [[place] 1 tab PO Q6H PRN 04/12/16 01/10/19 7.5-325] Nitroglycerin Sl Tabs [Nitrostat] 0.4 mg SUBLINGUAL Q5M PRN 04/12/16 01/10/19 Tamsulosin HCl [Flomax] 0.4 mg PO HS 04/12/16 01/10/19 glipiZIDE [Glucotrol] 10 mg PO AC-BID 04/12/16 01/10/19 sitaGLIPtin [Januvia] 100 mg PO DAILY 04/12/16 01/10/19 Albuterol Nebulized [Ventolin 2.5 mg INHALATION RT-Q4H PRN 03/04/17 01/14/19 Nebulized] Atorvastatin [Lipitor] 20 mg PO DAILY 01/10/19 01/10/19 Empagliflozin [Jardiance] 25 mg PO DAILY 01/10/19 01/10/19 Hydrocortisone Butyrate 1 applic TOPICAL BID PRN 01/10/19 01/10/19 [Hydrocortisone Butyrate 0.1%] Insulin Aspart [NovoLOG Flexpen] 30 - 40 units SQ AC-TID PRN 01/10/19 01/10/19 Insulin Degludec [Tresiba 60 units SQ HS 01/10/19 01/10/19 Flextouch U-200] metFORMIN HCL [Glucophage] 500 mg PO DAILY 01/10/19 01/10/19 Previous Rx's Medication Instructions Recorded Clindamycin [Cleocin] 450 mg PO Q8H 10 Days #30 cap 06/08/19 Sulfamethox-Tmp 800-160Mg [Bactrim 1 tab PO Q12HR 10 Days #20 tab 12/13/19 DS 800-160 mg] Allergies Allergy/AdvReac Type Severity Reaction Status Date / Time No Known Allergies Allergy Verified 12/13/19 14:28 Review of Systems ROS Statement: Those systems with pertinent positive or pertinent negative responses have been documented in the HPI. ROS Other: All systems not noted in ROS Statement are negative. Past Medical History Past Medical History: Asthma, Coronary Artery Disease (CAD), Chest Pain / Angin a, CVA/TIA, Diabetes Mellitus, Eye Disorder, Hyperlipidemia, Myocardial Infarction ([place]), Osteoarthritis (OA), Renal Disease, Respiratory Disorder Additional Past Medical History / Comment(s): Hx "MINI STROKE," recovered. Diabetic retinopathy. STATES HAS CHRONIC "BRONCHITIS." SL [place]. BPH. NEUROPATHY IN FEET. 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 Last Myocardial Infarction Date:: 2010 History of Any Multi-Drug Resistant Organisms: None Reported Past Surgical History: Heart Catheterization With Stent Additional Past Surgical History / Comment(s): PTCA W/ STENTS X2. ORIF RT THIGH as child. Colonoscopy. Past Anesthesia/Blood Transfusion Reactions: No Reported Reaction Date of Last Stent Placement:: 2010 Past Psychological History: No Psychological Hx Reported Smoking Status: Current every day smoker Past Alcohol Use History: None Reported Past Drug Use History: None Reported - Past Family History Daughter(s) Family Medical History: Cancer General Exam - General Exam Comments Initial Comments: Constitutional: NAD, AOX3, Pt has pleasant affect. HEENT: NC/AT, trachea midline, neck supple, no lymphadenopathy. Posterior pharynx non erythematous, without exudates. External ears appear normal, without discharge. Mucous membranes moist. Eyes PERRLA, EOM intact. There is no scleral icterus. No pallor noted. Cardiopulmonary: RRR, no murmurs, rubs or gallops, no JVD noted. Lungs CTAB in anterior and posterior fuller. No peripheral edema. Abdominal exam: Abdomen soft and non-distended. Abdomen non-tender to palpation in all 4 quadrants. Bowel sounds active in LLQ. No hepatosplenomegaly. No ecchymosis Neuro: CN II-XII grossly intact. No nuchal rigidity. No raccon eyes, no harris sign, no hemotympanum. No cervical spinal tenderness. MSK: No posterior calf tenderness bilaterally, homans sign negative bilaterally. Posterior tibialis and radial pulse +2 bilaterally. Sensation intact in upper and lower extremities. Full active ROM in upper and lower extremities. Right posterior mid thigh is mildly tender to palpation. 2 x 2 centimeter abscess is noted on the proximal posterior femur region. Was drained with the 18-gauge needle displayed purulent drainage. Limitations: no limitations Course Vital Signs 12/13/19 14:30 Temperature 98.0 F Pulse Rate 96 Respiratory 18 Rate Blood Pressure 123/76 O2 Sat by Pulse 94 L Oximetry Procedures - Incision & Drainage Consent Obtained: verbal consent Indication: abscess Site: lower extremity Size (cm): 2 I&D Cleaning Method: Chloroprep, Alcohol Wipe Needle Aspiration Performed?: Yes I&D Drainage Obtained: Pus Culture Obtained?: Yes Patient Tolerated Procedure: well, no complications Medical Decision Making - Medical Decision Making 69-year-old male patient was ED with chief complaint of right posterior thigh pain. Patient vital signs are stable, afebrile. Physical exam Mr. displayed some mild posterior thigh tenderness. Obtained including x-ray as well as in BOTH WHICH ARE NEGATIVE FOR ACUTE PROCESS. ON REPEAT EVALUATION AN ABSCESS ABOUT 2 X 2 CENTIMETERS WAS IDENTIFIED AND DRAINED. PATIENT DISCHARGED WITH OUTPATIENT FOLLOW-UP ANTIBIOTICS AND RETURN PRECAUTIONS. CASE DISCUSSED WITH Dr. Crowe. Disposition Clinical Impression: Abscess Disposition: HOME SELF-CARE Condition: Stable Instructions (If sedation given, give patient instructions): Abscess (ED) Additional Instructions: Take antibiotics as directed. Follow up with PCP tomorrow. Return to ED with any worsening symptoms. Prescriptions: Sulfamethox-Tmp 800-160Mg [Bactrim DS 800-160 mg] 1 tab PO Q12HR 10 Days #20 tab Is patient prescribed a controlled substance at d/c from ED?: No Referrals: Lee Ann Alonso MD [Primary Care Provider] - 1-2 days
--- NOTE | 2019-12-13 16:00 | US ---
EXAMINATION TYPE: US venous doppler duplex LE RT DATE OF EXAM: 12/13/2019 3:51 PM COMPARISON: NONE CLINICAL HISTORY: pain . SIDE PERFORMED: Right TECHNIQUE: The lower extremity deep venous system is examined utilizing real time linear array sonog demetrio with graded compression, doppler sonography and color-flow sonography. VESSELS IMAGED: External Iliac Vein (EIV) Common Femoral Vein Deep Femoral Vein Greater Saphenous Vein * Femoral Vein Popliteal Vein Small Saphenous Vein * Proximal Calf Veins (* superficial vessels) Right Leg: Negative for DVT Grayscale, color doppler, spectral doppler imaging performed of the deep veins of the right lower ext remity. There is normal flow, compressibility, vascular waveforms. IMPRESSION: No ultrasound evidence for acute DVT in the right lower extremity.
[2019-12-13] MEDS ORDERED: SULFAMETH-TMP DS STARTER PACK 2 TAB BTL PO STA (16:32)
[2019-12-13] MEDS ORDERED: SULFAMETHOX-TMP 800-160MG 1 EACH TAB PO STA (16:32)
== END 2019-12-13 17:18 | disposition home or self-care (01) ==
LOC: EC 14:10
DX: L02.415 Cutaneous abscess of right lower limb (principal); I25.119 Atherosclerotic heart disease of native coronary artery with unspecified angina pectoris; E11.21 Type 2 diabetes mellitus with diabetic nephropathy; E11.319 Type 2 diabetes mellitus with unspecified diabetic retinopathy without macular edema; J45.909 Unspecified asthma, uncomplicated; N40.0 Benign prostatic hyperplasia without lower urinary tract symptoms; M19.90 Unspecified osteoarthritis, unspecified site; E78.5 Hyperlipidemia, unspecified; I25.2 Old myocardial infarction; F17.200 Nicotine dependence, unspecified, uncomplicated; Z79.84 Long term (current) use of oral hypoglycemic drugs; Z79.82 Long term (current) use of aspirin; Z79.899 Other long term (current) drug therapy; Z79.4 Long term (current) use of insulin; Z96.698 Presence of other orthopedic joint implants; Z86.73 Personal history of transient ischemic attack (TIA), and cerebral infarction without residual deficits
CPT/HCPCS: 10060; 87070; 87205; 99284

== ENCOUNTER 2019-12-17 10:15 | Emergency (ER) | payer MEDICARE, BC ==
[2019-12-17 10:21] VITALS: RESP 18; TEMP 96.8
--- NOTE | 2019-12-17 10:36 | ED ---
Skin/Abscess/FB HPI - General Chief complaint: Skin/Abscess/Foreign Body Stated complaint: Boil on leg Time Seen by Provider: 12/17/19 10:22 Source: patient Mode of arrival: ambulatory Limitations: no limitations - History of Present Illness Initial comments: Patient is a 69-year-old male with history of diabetes presenting to the emergency department chief complaint of boil on the leg. Patient states he was in the emergency department 4 days ago and had a needle aspiration and lesion which is located on the posterior aspect of the proximal right thigh. Patient states the lesion continues to be more uncomfortable but he does not believe it is getting bigger in size. States it is in an upper position and is hard to see. Patient states he had a similar incident with an abscess in the same region as well. States outpatient about extubated for work for forearm. He denies any night sweats or chills. Denies any nausea or vomiting. States the pain is exacerbated with palpation whenever he sitting or standing. - Related Data Home Medications Medication Instructions Recorded Confirmed Aspirin EC [Ecotrin Low Dose] 81 mg PO HS 04/12/16 01/10/19 Gabapentin 1,200 mg PO BID 04/12/16 01/10/19 HYDROcodone/APAP 7.5-325MG [[place] 1 tab PO Q6H PRN 04/12/16 01/10/19 7.5-325] Nitroglycerin Sl Tabs [Nitrostat] 0.4 mg SUBLINGUAL Q5M PRN 04/12/16 01/10/19 Tamsulosin HCl [Flomax] 0.4 mg PO HS 04/12/16 01/10/19 glipiZIDE [Glucotrol] 10 mg PO AC-BID 04/12/16 01/10/19 sitaGLIPtin [Januvia] 100 mg PO DAILY 04/12/16 01/10/19 Albuterol Nebulized [Ventolin 2.5 mg INHALATION RT-Q4H PRN 03/04/17 01/14/19 Nebulized] Atorvastatin [Lipitor] 20 mg PO DAILY 01/10/19 01/10/19 Empagliflozin [Jardiance] 25 mg PO DAILY 01/10/19 01/10/19 Hydrocortisone Butyrate 1 applic TOPICAL BID PRN 01/10/19 01/10/19 [Hydrocortisone Butyrate 0.1%] Insulin Aspart [NovoLOG Flexpen] 30 - 40 units SQ AC-TID PRN 01/10/19 01/10/19 Insulin Degludec [Tresiba 60 units SQ HS 01/10/19 01/10/19 Flextouch U-200] metFORMIN HCL [Glucophage] 500 mg PO DAILY 01/10/19 01/10/19 Previous Rx's Medication Instructions Recorded Clindamycin [Cleocin] 450 mg PO Q8H 10 Days #30 cap 06/08/19 Sulfamethox-Tmp 800-160Mg [Bactrim 1 tab PO Q12HR 10 Days #20 tab 12/13/19 DS 800-160 mg] Allergies Allergy/AdvReac Type Severity Reaction Status Date / Time No Known Allergies Allergy Verified 12/17/19 10:21 Review of Systems ROS Statement: Those systems with pertinent positive or pertinent negative responses have been documented in the HPI. ROS Other: All systems not noted in ROS Statement are negative. Past Medical History Past Medical History: Asthma, Coronary Artery Disease (CAD), Chest Pain / Angina, CVA/TIA, Diabetes Mellitus, Eye Disorder, Hyperlipidemia, Myocardial Infarction ([place]), Osteoarthritis (OA), Renal Disease, Respiratory Disorder Additional Past Medical History / Comment(s): Hx "MINI STROKE," recovered. Diabetic retinopathy. STATES HAS CHRONIC "BRONCHITIS." SL [place]. BPH. NEUROPATHY IN FEET. 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 Last Myocardial Infarction Date:: 2010 History of Any Multi-Drug Resistant Organisms: None Reported Past Surgical History: Heart Catheterization With Stent Additional Past Surgical History / Comment(s): PTCA W/ STENTS X2. ORIF RT THIGH as child. Colonoscopy. Past Anesthesia/Blood Transfusion Reactions: No Reported Reaction Date of Last Stent Placement:: 2010 Past Psychological History: No Psychological Hx Reported Smoking Status: Current every day smoker Past Alcohol Use History: None Reported Past Drug Use History: None Reported - Past Family History Daughter(s) Family Medical History: Cancer General Exam Limitations: no limitations General appearance: alert, in no apparent distress, obese Head exam: Present: atraumatic, normocephalic, normal inspection Eye exam: Present: normal appearance, PERRL, EOMI Pupils: Present: normal accommodation ENT exam: Present: normal exam, normal oropharynx, mucous membranes moist Neck exam: Present: normal inspection, full ROM. Absent: tenderness Respiratory exam: Present: normal lung sounds bilaterally. Absent: respiratory distress, wheezes, rales Cardiovascular Exam: Present: regular rate, normal rhythm, normal heart sounds Rectal exam: Absent: normal inspection (Abscess noted in the posterior aspect of the right proximal thigh. Overlying cellulitic skin skin changes noted as well. No active discharge at this time. Region is measuring approximately 2 cm to 4 cm.) Extremities exam: Present: normal inspection, full ROM, normal capillary refill. Absent: tenderness Back exam: Present: normal inspection, full ROM. Absent: tenderness, CVA tenderness (R), CVA tenderness (L) Neurological exam: Present: alert, oriented X3, normal gait Psychiatric exam: Present: normal affect, normal mood Skin exam: Present: warm, dry, intact, normal color Course Vital Signs 12/17/19 10:17 Temperature 96.8 F L Pulse Rate 95 Respiratory 18 Rate Blood Pressure 114/64 O2 Sat by Pulse 100 Oximetry Procedures - Incision & Drainage Consent Obtained: verbal consent Indication: Abscess Site: lower extremity (Right proximal thigh) Size (cm): 5 Anesthetic Used: lidocaine 1%, with epi Amount (mLs): 5 I&D Cleaning Method: Alcohol Wipe Sterile Field Used?: No Scalpel Used: #11 Needle Aspiration Performed?: No Irrigation Performed?: Yes I&D Drainage Obtained: Pus, Blood Culture Obtained?: Yes Complications: bleeding Patient Tolerated Procedure: well, no complications Medical Decision Making - Medical Decision Making patient is 69-year-old diabetic male presents emergency Department with a chief complaint of a boil on leg. On physical examination, patient does have an abscess on the posterior aspect of his right proximal thigh. Measures about 5 cm in diameter no active discharge at this time. There is a center area of fluctuance measuring approximately 1 cm in diameter. Lidocaine with epinephrine was used for local anesthesia. Lot of pus was removed. Wound culture pending. Patient was also given IV clindamycin. I discussed this with the pharmacist regarding the dosage and advised for him to continue taking the Bactrim at home. CBC revealed leukocytosis. However, patient has stable vitals. No night sweats fevers or chills. He is otherwise well-appearing. Lactate within normal limits. Strict return parameters were thoroughly discussed patient is a 72 agreeable. He was advised to keep warm compresses and do dressing changes at the abscess site. Upon incision and drainage, patient reported immediate relief and pressure. He was advised to follow with his primary care physician. Case discussed with physician. - Lab Data Result diagrams: 12/17/19 11:20 12/17/19 11:20 Lab Results 12/17/19 12/17/19 12/17/19 Range/Units 11:20 11:20 11:20 WBC 15.6 H (3.8-10.6) k/uL RBC 5.24 (4.30-5.90) m/uL Hgb 15.7 (13.0-17.5) gm/dL Hct 49.4 (39.0-53.0) % MCV 94.3 (80.0-100.0) fL MCH 30.0 (25.0-35.0) pg MCHC 31.8 (31.0-37.0) g/dL RDW 14.3 (11.5-15.5) % Plt Count 232 (150-450) k/uL Neutrophils % 79 % Lymphocytes % 13 % Monocytes % 5 % Eosinophils % 2 % Basophils % 0 % Neutrophils # 12.3 H (1.3-7.7) k/uL Lymphocytes # 2.0 (1.0-4.8) k/uL Monocytes # 0.8 (0-1.0) k/uL Eosinophils # 0.3 (0-0.7) k/uL Basophils # 0.0 (0-0.2) k/uL Sodium 139 (137-145) mmol/L Potassium 4.7 (3.5-5.1) mmol/L Chloride 108 H (98-107) mmol/L Carbon Dioxide 24 (22-30) mmol/L Anion Gap 7 mmol/L BUN 16 (9-20) mg/dL Creatinine 0.83 (0.66-1.25) mg/dL Est GFR (CKD-EPI)AfAm >90 (>60 ml/min/1.73 sqM) Est GFR (CKD-EPI)NonAf >90 (>60 ml/min/1.73 sqM) Glucose 200 H (74-99) mg/dL Plasma Lactic Acid [place] 1.9 (0.7-2.0) mmol/L Calcium 9.3 (8.4-10.2) mg/dL Total Bilirubin 0.5 (0.2-1.3) mg/dL AST 24 (17-59) U/L ALT 19 (4-49) U/L Alkaline Phosphatase 76 (38-126) U/L Total Protein 6.9 (6.3-8.2) g/dL Albumin 3.7 (3.5-5.0) g/dL Disposition Clinical Impression: Abscess Disposition: HOME SELF-CARE Condition: Stable Instructions (If sedation given, give patient instructions): Abscess (ED), Abscess Incision and Drainage (DC) Additional Instructions: Apply warm compresses to the tender region. Performed dressing changes daily. Take prescribed medication as directed. Return to emergency department if symptoms worsen. Is patient prescribed a controlled substance at d/c from ED?: No Referrals: Lee Ann Alonso MD [Primary Care Provider] - 1-2 days Time of Disposition: 12:27
[2019-12-17] MEDS ORDERED: LIDOCAINE 1%-EPI 1:100,000 20 ML VIAL SQ STA (10:39)
[2019-12-17] MEDS ORDERED: CLINDAMYCIN 900 MG in DEXTROSE 5% IN WATER 50 ML IVPB STA ×2 (10:48)
[2019-12-17 11:38] LABS: Basophils % (A) 0 %; Eosinophils # (A) 0.3 k/uL (0-0.7); Eosinophils % (A) 2 %; HCT 49.4 % (39.0-53.0); HGB 15.7 gm/dL (13.0-17.5); Lymphocytes % (A) 13 %; MCHC 31.8 g/dL (31.0-37.0); MCV 94.3 fL (80.0-100.0); Mean Platelet Volume 7.2; Monocytes # (A) 0.8 k/uL (0-1.0); Monocytes % (A) 5 %; Neutrophils # (A) 12.3 k/uL (1.3-7.7); Neutrophils % (A) 79 %; Platelet Count 232 k/uL (150-450); RBC 5.24 m/uL (4.30-5.90); RDW 14.3 % (11.5-15.5); WBC 15.6 k/uL (3.8-10.6)
[2019-12-17 11:48] LABS: ALT 19 U/L (4-49); AST 24 U/L (17-59); African American GFR (CKD) >90 (>60 ml/min/1.73 sqM); Albumin 3.7 g/dL (3.5-5.0); Alkaline Phosphatase 76 U/L (38-126); Anion Gap 7 mmol/L; Blood Urea Nitrogen 16 mg/dL (9-20); Calcium 9.3 mg/dL (8.4-10.2); Carbon Dioxide 24 mmol/L (22-30); Chloride 108 mmol/L (98-107); Glucose 200 mg/dL (74-99); Non-African American GFR(CKD) >90 (>60 ml/min/1.73 sqM); Sodium 139 mmol/L (137-145); Total Bilirubin 0.5 mg/dL (0.2-1.3); Total Protein 6.9 g/dL (6.3-8.2)
[2019-12-17 11:50] LABS: Potassium 4.7 mmol/L (3.5-5.1)
[2019-12-17 12:44] VITALS: PULSE 90
[2019-12-17 12:50] VITALS: BP 112/70
== END 2019-12-17 12:45 | disposition home or self-care (01) ==
LOC: EC 10:15
DX: L02.415 Cutaneous abscess of right lower limb (principal); J45.909 Unspecified asthma, uncomplicated; E78.5 Hyperlipidemia, unspecified; M19.90 Unspecified osteoarthritis, unspecified site; I25.2 Old myocardial infarction; I25.119 Atherosclerotic heart disease of native coronary artery with unspecified angina pectoris; E11.40 Type 2 diabetes mellitus with diabetic neuropathy, unspecified; F17.200 Nicotine dependence, unspecified, uncomplicated; Z79.4 Long term (current) use of insulin; Z79.82 Long term (current) use of aspirin; Z79.899 Other long term (current) drug therapy; Z95.5 Presence of coronary angioplasty implant and graft; Z86.73 Personal history of transient ischemic attack (TIA), and cerebral infarction without residual deficits
CPT/HCPCS: 10060; 36415; 80053; 83605; 85025; 87040; 87070; 87205; 96365; 96366; 99283